=== PATIENT | female | born 1965 | race Caucasian/White ===

== ENCOUNTER 2023-04-09 15:52 | Outpatient (OUT) | payer OTHER, SELFPAY ==
--- NOTE | 2023-04-09 15:55 | MM_ITS ---
Patient Name: KIM MILLAN MR#: [id number] : 1965 Exam Date: 04/09/2023 Ordering Doctor: Non-Staff Physician RADIOLOGY REPORT PROCEDURE: MM TOMOSYNTHESIS SCREENING BI COMPARISON: MG MAMM SCREEN 3D MARIN CAD, 02/13/2022. MG MAMM SCREEN 3D MARIN CAD, 12/24/2020. MG MAMM SCREEN MARIN W CAD, 05/31/2019. MG MAMM MARIN DIAG W CAD, 02/06/2016. INDICATIONS: Screening Calculator Name NCI Breast Cancer Risk Assessment Tool 5 Year Breast Cancer Risk 2.20% Lifetime Breast Cancer Risk 14.80% Personal Breast Cancer No Personal Ovarian Cancer No Treatments None Family Cancers Mother with breast cancer at age 65. LOCATION: [facility] BREAST COMPOSITION: Heterogeneously dense,which may obscure small masses. FINDINGS: DIAGNOSTIC CATEGORY 2--BENIGN FINDING: RIGHT BREAST: No significant suspicious finding. Scattered benign-appearing lymph nodes are present. No significant change has occurred. LEFT BREAST: No significant suspicious finding. Scattered benign-appearing lymph nodes are present. No significant change has occurred. RECOMMENDATIONS: ROUTINE MAMMOGRAM AND CLINICAL EVALUATION IN 12 MONTHS. PLEASE NOTE: A NORMAL MAMMOGRAM DOES NOT EXCLUDE THE POSSIBILITY OF BREAST CANCER. A CLINICALLY SUSPICIOUS PALPABLE LUMP SHOULD BE BIOPSIED. Dictated by: Roque Goddard M.D. on 04/10/2023 at 14:50 Approved by: Roque Goddard M.D. on 04/10/2023 at 14:53
== END 2023-04-09 15:53 | disposition home or self-care (01) ==
LOC: MAMMO 15:52
PROVIDERS: PCP Family Medicine
DX: Z12.31 Encounter for screening mammogram for malignant neoplasm of breast (principal); Z80.3 Family history of malignant neoplasm of breast
CPT/HCPCS: 77063; 77067

== ENCOUNTER 2023-07-21 15:48 | Outpatient (OUT) | payer OTHER, SELFPAY ==
--- NOTE | 2023-07-21 15:50 | MR_ITS ---
[address] [address] Patient Name: KIM MILLAN MRN: [facility]:[id number] date: 1965 Sex: F Assigned Patient Location: MRI Current Patient Location: Accession/Order Number: [id number] Exam Date: 07/21/2023 16:00 Report Date: 07/22/2023 06:59 At the request of: SALVADOR ISLAS Procedure: MR knee RT wo con EXAMINATION: MR knee RT wo con HISTORY: internal derangement of right knee M23.91 ; chronic medial knee pain; no known injury COMPARISON: No relevant comparison available. TECHNIQUE: A complete multi-planar MRI was performed. FINDINGS: MEDIAL COMPARTMENT MEDIAL MENISCUS: Prominent T2 signal within the body, posterior junction, and posterior horn with irregular areas extending to the superior surface of the body. CARTILAGE: No visible defect. BONES: No marrow pathology, fracture, or significant arthropathy. MCL AND MEDIAL CAPSULE: Grade II sprain of the medial collateral ligament. LATERAL COMPARTMENT LATERAL MENISCUS: No visible tear or significant degeneration. CARTILAGE: No visible defect. BONES: No marrow pathology, fracture, or significant arthropathy. LCL/POSTEROLAT COMPLEX: Normal lateral collateral ligament, fascicles, lateral capsule and ligaments. ANTERIOR COMPARTMENT PATELLA: No marrow pathology, fracture, or significant arthropathy. CARTILAGE: No visible defect. TENDONS: Normal. EFFUSION: None. No synovitis or loose bodies. ACL: Normal appearing ligament. PCL: Normal appearing ligament. MENISCOFEMORAL: Normal meniscofemoral ligaments. OTHER: Negative. MR/MR knee RT wo con IMPRESSION: 1. Prominent T2 signal involving the body through posterior horn of the medial meniscus extending to the superior surface of the body suspected represent complex tear. This could possibly represent sequela of prior surgery and scarring. 2. Moderate strain of the medial collateral ligament. Electronically authenticated by: KORIN HOLLINGSWORTH Date: 07/22/2023 06:59
== END 2023-07-21 15:49 | disposition home or self-care (01) ==
LOC: MRI 15:48
PROVIDERS: PCP Family Medicine; Visit Provider Personal Emergency Response Attendant
DX: M23.91 Unspecified internal derangement of right knee (principal); S83.411A Sprain of medial collateral ligament of right knee, initial encounter
CPT/HCPCS: 73721